=== PATIENT | female | born 1980 | race Caucasian/White ===

== ENCOUNTER → 2017-07-08 | Outpatient (CLI) | payer OTHER ==
[~2017-07-08] MED LIST: CLR10 PO
== END | disposition home or self-care (01) ==
LOC: C.PAPS 14:11
PROVIDERS: ATTEND Obstetrics & Gynecology
DX: Z12.4 Encounter for screening for malignant neoplasm of cervix (principal)

== ENCOUNTER → 2017-11-15 | Outpatient (CLI) | payer OTHER ==
[~2017-11-15] MED LIST changes: +OXYC-57 PO
== END | disposition home or self-care (01) ==
LOC: C.LABSPEC 16:08
PROVIDERS: ATTEND Obstetrics & Gynecology
DX: O09.521 Supervision of elderly multigravida, first trimester (principal); Z3A.00 Weeks of gestation of pregnancy not specified

== ENCOUNTER 2017-11-16 08:03 | Observation (INO) | payer BC, OTHER ==
[2017-11-16] VITALS (7 sets, daily range): BP systolic 116–143; BP diastolic 70–81; PULSE 59–87; TEMP 36.7–37; O2SAT 95–98; Ht 157.5 cm; Wt 55.4 kg
[~2017-11-16] VITALS: Ht 157.5 cm; Wt 55.4 kg
[~2017-11-16 08:03] MED LIST changes: -OXYC-57 PO
--- NOTE | 2017-11-16 08:38 | EMERGENCY ROOM VISIT NOTE ---
History First contact with patient: 08:19 Chief Complaint: ABDOMINAL PAIN Stated Complaint: LOWER R AD PAIN, 9W5D Nursing Triage Summary: pt report tuesday started having right abd pain. went to ob yesterday everything was fine with fetus today called ob told to come to ed to r/o appy. pain has moved to right lower quad. tender to touch. pt reports she has been nauseated for last 5 weeks and this is her 3rd . 9 weeks 3 days preg. History of Present Illness The patient is a 37 year old female who presents to the Emergency Room with complaints of right lower quadrant abdominal pain which began on Tuesday. The patient states the symptoms began Tuesday evening and overnight, worse as stated with nausea and vomiting. She states Tuesday, she did see Dr. Negron, her algorithm developer, did have evaluation of the fetus. She states she had a ultrasound completed at that time, and did not know any significant abnormalities noted. Last evening, she began experiencing worsening abdominal pain, and did awake with it this morning. She contacted her bilingual account manager's office, who did recommend she come to the emergency department for evaluation and to rule out acute appendicitis. States now that she is here, her pain has improved, however she continues to feel tenderness in the right lower quadrant, overlying McBurney's point. The pain is worse with lying down, and improves with sitting up. She describes the pain as a soreness in the right lower quadrant, but states she has had associated diffuse cramping and spasms. She has had a poor appetite, but denies fever or recent illness. She denies any chest pain, dyspnea, headache, dizziness, diarrhea, constipation, urinary frequency, hesitancy, hematuria, or burning with urination. Review of Systems A complete 10 point review of systems was reviewed with the patient with pertinent positives and negatives as per history of present illness. All else were negative. Past Medical/Surgical History Surgical Problems: (1) No pertinent past surgical history Family History Patient reports no known family medical history. Social History Smoking Status: Never Smoker Marital Status: Housing Status: lives with family Occupation Status: employed Current/Historical Medications Scheduled PRN Oxycodone/Acetaminophen 5MG/325MG (Percocet 5MG/325MG), 1-2 TABLETS PO q 6 hrs PRN for Pain Physical Exam Vital Signs Date Time Temp Pulse Resp B/P (MAP) Pulse Ox O2 Delivery O2 Flow Rate FiO2 11/16/17 12:50 64 12 127/94 100 Nasal Cannula 2 11/16/17 12:40 66 12 133/87 100 Oxymask 10 11/16/17 12:32 36.6 85 12 132/83 100 Oxymask 10 11/16/17 10:27 86 20 146/96 98 Room Air 11/16/17 08:13 37.0 95 18 135/90 97 Room Air Physical Exam VITALS: Vitals are noted on the nurse's note and reviewed by myself. Vital signs stable. GENERAL: This is a 37-year-old white female, in no acute distress, nondiaphoretic, well-developed well-nourished. SKIN: The skin was without rashes, erythema, edema, or bruising. There is no tenting of the skin. Capillary reflex less than 2 seconds. HEAD: Normocephalic atraumatic. EARS: External auditory canals clear, tympanic membranes pearly macais without erythema or effusion bilaterally. EYES: Pupils equal round and reactive to light and accommodation. Conjunctivae without injection, sclerae without icterus. Extraocular movements intact. NOSE: Patent, turbinates without inflammation or discharge. No sinus tenderness. MOUTH: Mucous membranes moist. Tonsils are not enlarged. Pharynx without erythema or exudate. Uvula midline. Airway patent. Tongue does not deviate. NECK: Supple without nuchal rigidity. No lymphadenopathy. No thyromegaly. Cervical spine is nontender. No JVD. HEART: Regular rate and rhythm without murmurs gallops or rubs. LUNGS: Clear to auscultation bilaterally without wheezes, rales or rhonchi. No dullness to percussion. No retractions or accessory muscle use. ABDOMEN: Positive bowel sounds x 4. Normal tympanic percussion. Tenderness over McBurney's point. No rebound tenderness noted. Positive Rovsing's. The abdomen was soft, without masses or organomegaly. Yarbrough sign negative. MUSCULOSKELETAL: No muscle atrophy, erythema, or edema noted. Full range of motion without joint tenderness in all extremities. No tenderness to palpation. Normal gait. Strength 5/5 throughout. NEURO: Patient was alert and oriented to person place and time. Normal sensation to light and sharp touch. Deep tendon reflexes 2+ throughout. No focal neurological deficits. Medical Decision & Procedures ER Provider Diagnostic Interpretation: CBC did show elevated white blood cell count of 14,000. No concerning anemia or thrombocytopenia. Urinalysis did show trace ketones, but no signs of infection. CMP did not reveal any significant renal, hepatic, or joint abnormalities. APPENDIX ULTRASOUND HISTORY: Pain RLQ tenderness at Mcburney's point, pt. is 9 wks COMPARISON: None. FINDINGS: The appendix is identified. Appears to contain an appendicolith. Has a maximum transaxial dimension of 11 mm. There is moderate edematous change of the appendiceal wall. IMPRESSION: 1. Acute appendicitis. 2. Appendix maximum diameter is 11 mm with a contained appendicolith. 3. Moderate edematous change of the appendix wall. 4. No evidence for abscess or collection by ultrasound criteria The above report was generated using voice recognition software. It may contain grammatical, syntax or spelling errors. Electronically signed by: Anuj Haywood M.D. 11/16/2017 9:46 AM Dictated Date/Time: 11/16/2017 9:43 AM Laboratory Results 11/16/17 09:00 Red Blood Count 4.11, Mean Corpuscular Volume 90.5, Mean Corpuscular Hemoglobin 31.1, Mean Corpuscular Hemoglobin Concent 34.4, Mean Platelet Volume 10.1, Neutrophils (%) (Auto) 82.5, Lymphocytes (%) (Auto) 9.4, Monocytes (%) (Auto) 7.6, Eosinophils (%) (Auto) 0.1, Basophils (%) (Auto) 0.1, Neutrophils # (Auto) 11.68, Lymphocytes # (Auto) 1.33, Monocytes # (Auto) 1.07, Eosinophils # (Auto) 0.01, Basophils # (Auto) 0.02 11/16/17 09:00 Test 11/16/17 09:00 White Blood Count 14.15 K/uL (4.8-10.8) Red Blood Count 4.11 M/uL (4.2-5.4) Hemoglobin 12.8 g/dL (12.0-16.0) Hematocrit 37.2 % (37-47) Mean Corpuscular Volume 90.5 fL (80-100) Mean Corpuscular Hemoglobin 31.1 pg (25-34) Mean Corpuscular Hemoglobin Concent 34.4 g/dl (32-36) Platelet Count 194 K/uL (130-400) Mean Platelet Volume 10.1 fL (7.4-10.4) Neutrophils (%) (Auto) 82.5 % Lymphocytes (%) (Auto) 9.4 % Monocytes (%) (Auto) 7.6 % Eosinophils (%) (Auto) 0.1 % Basophils (%) (Auto) 0.1 % Neutrophils # (Auto) 11.68 K/uL (1.4-6.5) Lymphocytes # (Auto) 1.33 K/uL (1.2-3.4) Monocytes # (Auto) 1.07 K/uL (0.11-0.59) Eosinophils # (Auto) 0.01 K/uL (0-0.5) Basophils # (Auto) 0.02 K/uL (0-0.2) RDW Standard Deviation 44.6 fL (36.4-46.3) RDW Coefficient of Variation 13.5 % (11.5-14.5) Immature Granulocyte % (Auto) 0.3 % Immature Granulocyte # (Auto) 0.04 K/uL (0.00-0.02) Urine Color YELLOW Urine Appearance CLEAR (CLEAR) Urine pH 8.0 (4.5-7.5) Urine Specific Felt 1.010 (1.000-1.030) Urine Protein NEG (NEG) Urine Glucose (UA) NEG (NEG) Urine Ketones TRACE (NEG) Urine Occult Blood NEG (NEG) Urine Nitrite NEG (NEG) Urine Bilirubin NEG (NEG) Urine Urobilinogen NEG (NEG) Urine Leukocyte Esterase NEG (NEG) Anion Gap 9.0 mmol/L (3-11) Est Creatinine Clear Calc Drug Dose 117.2 ml/min Estimated GFR () 141.5 Estimated GFR (Non- 122.1 BUN/Creatinine Ratio 12.8 (10-20) Calcium Level 9.6 mg/dl (8.5-10.1) Total Bilirubin 0.5 mg/dl (0.2-1) Aspartate Amino Transf (AST/SGOT) 10 U/L (15-37) Alanine Aminotransferase (ALT/SGPT) 15 U/L (12-78) Alkaline Phosphatase 52 U/L (45-117) Total Protein 7.1 gm/dl (6.4-8.2) Albumin 3.5 gm/dl (3.4-5.0) Globulin 3.6 gm/dl (2.5-4.0) Albumin/Globulin Ratio 1.0 (0.9-2) Medications Administered Medications (Trade) Dose Ordered Sig/Brendan Route Start Time Stop Time Status Last Admin Dose Admin Cefoxitin Sodium (Mefoxin IV) 2,000 mg NOW STAT IV 11/16/17 10:24 11/16/17 10:28 DC 11/16/17 11:29 2,000 MG Bupivacaine HCl (Marcaine 0.5% MPF Inj) 30 ml STK-MED ONCE .ROUTE 11/16/17 11:13 11/16/17 11:14 DC 11/16/17 12:38 7 ML Acetaminophen (Tylenol Tab) 650 mg Q4H PRN PO 11/16/17 12:30 12/16/17 12:29 11/16/17 15:14 650 MG Lactated Ringer's 1,000 ml @ 75 mls/hr [id number] IV 11/16/17 12:22 11/16/17 16:21 DC 11/16/17 14:39 75 MLS/HR Fentanyl Citrate (Fentanyl Inj) 100 mcg STK-MED ONCE .ROUTE 11/16/17 12:45 11/16/17 12:46 DC 11/16/17 12:54 50 MCG ED Course The patient was seen and evaluated as above. IV access was obtained and labs drawn. The patient was sent for appendix ultrasound, as she is currently 9 weeks . Ultrasound was positive for acute appendicitis. I consulted with Dr. Suarez at this time who was in agreement with the plan to contact the surgeon/OB-CORRECTIONAL PROBATION OFFICER. I consulted with Dr. Espino, who agrees to see and evaluate the patient. I contacted Dr. Negron, the patient's bilingual account manager, who is familiar with the case and is in agreement with the plan of care. The patient was evaluated by Dr. Espino. Please refer to his dictation. She was given 2grams of Cefoxitin IV. I did consult with the pharmacist regarding this medication in a patient and they are in agreement that this is the most appropriate medication. The patient was taken to the OR. Medical Decision This is a 37-year-old female patient who presents to the emergency department complaining of worsening right lower quadrant abdominal pain. The pain began more generalized, and seemed to settle into McBurney's point last evening. The pain has been associated with nausea, vomiting, and a poor appetite. The patient has not had fever. She was seen by her bilingual account manager yesterday, who did perform a ultrasound, ensuring the did not seem to be the cause of her symptoms. Last night, the pain began worsening, and she was recommended to come to the emergency department by her obstetricians office. The patient presents here, and an due to her , and small body habitus, ultrasound was performed to avoid radiation exposure, which was positive for acute appendicitis. The patient was seen and evaluated by the surgeon, who did admit the patient for appendectomy. The patient's bilingual account manager was in agreement with this plan. Etiologies such as appendicitis, diverticulitis, obstruction, inflammatory bowel disease, renal colic, PUD, biliary pathology, pancreatitis, mesenteric ischemia, aortic pathology, infections, genitourinary, UTI, perforated viscus, as well as others were entertained. Medication Reconcilliation Current Medication List: was personally reviewed by me Blood Pressure Screening Patient's blood pressure: Normal blood pressure Impression Primary Impression: Appendicitis Departure Information Dispostion Being Evaluated By Surgeon Condition GOOD Prescriptions Oxycodone/Acetaminophen 5MG/325MG (PERCOCET 5MG/325MG) Tab 1-2 TABLETS PO q 6 hrs Y for Pain, #30 TAB PAIN Prov: Bran Espino M.D. 11/16/17 Referrals Angelica Moon M.D. (PCP) Patient Instructions [facility] Problem Qualifiers Primary Impression: Appendicitis Appendicitis type: acute appendicitis Acute appendicitis type: with localized peritonitis Qualified Codes: K35.3 - Acute appendicitis with localized peritonitis
[2017-11-16 09:15] LABS: BASO % 0.1 %; BASO ABS # 0.02 K/uL (0-0.2); EOS % 0.1 %; EOS ABS # 0.01 K/uL (0-0.5); HEMATOCRIT 37.2 % (37-47); HEMOGLOBIN 12.8 g/dL (12.0-16.0); IG# 0.04 K/uL (0.00-0.02); LYMPH % 9.4 %; LYMPH ABS # 1.33 K/uL (1.2-3.4); MEAN CELL VOLUME 90.5 fL (80-100); MEAN CORPUSCULAR HEMOGLOBIN 31.1 pg (25-34); MEAN CORPUSCULAR HGB CONC 34.4 g/dl (32-36); MEAN PLATELET VOLUME 10.1 fL (7.4-10.4); MONO % 7.6 %; MONO ABS # 1.07 K/uL (0.11-0.59); NEUT % 82.5 %; NEUT ABS # 11.68 K/uL (1.4-6.5); PLATELET COUNT 194 K/uL (130-400); RED CELL DISTRIBUTION WIDTH CV 13.5 % (11.5-14.5); RED CELL DISTRIBUTION WIDTH SD 44.6 fL (36.4-46.3); WHITE BLOOD COUNT 14.15 K/uL (4.8-10.8)
[2017-11-16 09:42] LABS: ALBUMIN 3.5 gm/dl (3.4-5.0); CALCIUM 9.6 mg/dl (8.5-10.1); CREATININE 0.52 mg/dl (0.60-1.20); POTASSIUM 3.6 mmol/L (3.5-5.1)
[2017-11-16 09:45] LABS: TOTAL PROTEIN 7.1 gm/dl (6.4-8.2)
--- NOTE | 2017-11-16 09:47 | DIAGNOSTIC IMAGING REPORT ---
APPENDIX ULTRASOUND HISTORY: Pain RLQ tenderness at Mcburney's point, pt. is 9 wks COMPARISON: None. FINDINGS: The appendix is identified. Appears to contain an appendicolith. Has a maximum transaxial dimension of 11 mm. There is moderate edematous change of the appendiceal wall. IMPRESSION: 1. Acute appendicitis. 2. Appendix maximum diameter is 11 mm with a contained appendicolith. 3. Moderate edematous change of the appendix wall. 4. No evidence for abscess or collection by ultrasound criteria The above report was generated using voice recognition software. It may contain grammatical, syntax or spelling errors. Electronically signed by: Anuj Haywood M.D. 11/16/2017 9:46 AM Dictated Date/Time: 11/16/2017 9:43 AM
[2017-11-16] MEDS ORDERED: CEFOXITIN SOD 2 GM VIAL IV STA (10:24)
--- NOTE | 2017-11-16 10:38 | History and Physical ---
History & Physical Date Nov 16, 2017. Chief Complaint abd pain History of Present Illness The patient is a 37 year old female with complaints of RLQ abd [id number] hrs u/s shows appendicitis w/ appendolith pt is 9 weeks Past Medical/Surgical History Surgical Problems: (1) No pertinent past surgical history Additional History Hepatic Disease: No Kidney Disease: No Heart Disease: No Allergies Coded Allergies: No Known Allergies (Verified , 11/16/17) Home Medications No Active Prescriptions or Reported Meds Physical Examination Eyes: sclerae normal Head: atraumatic Neck: supple Respiratory/Chest: no respiratory distress Cardiovascular: no edema Abdomen / GI: + pertinent finding (very tender RLQ to palpation) Diagnosis acute appendicitis Plan of Treatment for laparoscopic appendectomy, possible open operation
[2017-11-16] MEDS ORDERED: NEOSTIGMINE METHYLSULFATE 5 MG/5 ML SYR ONE (11:04)
[2017-11-16] MEDS ORDERED: GLYCOPYRROLATE INJ 0.2 MG/ML VIAL ONE ×2 (11:04→12:14)
[2017-11-16] MEDS ORDERED: PROPOFOL IV EMULSION 10 MG/ML 20 ML VIAL IV ONE (11:04)
[2017-11-16] MEDS ORDERED: ONDANSETRON INJ 2 MG/ML 2 ML VIAL ONE (11:04)
[2017-11-16] MEDS ORDERED: DEXAMETHASONE SOD INJ 4 MG/ML VIAL ONE (11:04)
[2017-11-16] MEDS ORDERED: LIDOCAINE HCL 2% 2 ML VIAL (20MG/ML) ONE (11:04)
[2017-11-16] MEDS ORDERED: FENTANYL CITRATE INJ 50 MCG/1 ML 2 ML VIAL ONE ×3 (11:04→12:45)
[2017-11-16] MEDS ORDERED: BUPIVACAINE 0.5 % 5 MG/1 ML MPF 30ML VIAL ONE (11:13)
[2017-11-16] MEDS ORDERED: ONDANSETRON INJ 2 MG/ML 2 ML VIAL IV PRN ×2 (12:00→12:30)
[2017-11-16] MEDS ORDERED: FENTANYL CITRATE INJ 50 MCG/1 ML 2 ML VIAL IV PRN (12:00)
[2017-11-16] MEDS ORDERED: EpHEDrine SULFATE INJ 50 MG/ML AMP IV PRN (12:00)
[2017-11-16] MEDS ORDERED: HYDROmorphone INJ 1 MG/ML SYR IV PRN (12:00)
[2017-11-16] MEDS ORDERED: ATROPINE SULFATE 0.1 MG/ML 5ML SYR IV PRN (12:00)
[2017-11-16] MEDS ORDERED: PROMETHAZINE HCL INJ 6.25 MG in SODIUM CHLORIDE 0.9% 50ML 50 ML IV PRN (12:00)
[2017-11-16] MEDS ORDERED: ROCURONIUM BROMIDE 10 MG/ML 5 ML VIAL IV ONE (12:04)
[2017-11-16] MEDS ORDERED: SUCCINYLCHOLINE 100MG/5ML SYR IV ONE (12:04)
--- NOTE | 2017-11-16 12:19 | [facility] Operative Report ---
Operative Report Operative Date Nov 16, 2017. Pre-Operative Diagnosis acute appendicitis Post-Operative Diagnosis same Procedure(s) Performed laparoscopic appendectomy Surgeon Espino Fire Alarm Mechanic Surgeon(s) Josie Medina Estimated Blood Loss 5cc Findings nonperforated appendix- appendolith at base Specimens appendix Anesthesia gen Complication(s) None Disposition Recovery Room / PACU I attest to the content of the Intraoperative Record and any orders documented therein. Any exceptions are noted below.
[2017-11-16] MEDS ORDERED: LACTATED RINGER'S 1000ML 1,000 ML IV SCH (12:22)
[2017-11-16] MEDS ORDERED: MoRPHine SULFATE 4 MG/ML 1 ML CARP\\VIAL IV PRN (12:30)
[2017-11-16] MEDS ORDERED: OXYCODONE/ACETAMINOPHEN 5-325 TAB PO PRN ×2 (12:30)
[2017-11-16] MEDS ORDERED: MoRPHine SULFATE 2 MG/ML CARP IV PRN (12:30)
--- NOTE | 2017-11-16 12:47 | OPERATIVE REPORT ---
DATE OF OPERATION: 11/16/2017 PREOPERATIVE DIAGNOSIS: Acute appendicitis. POSTOPERATIVE DIAGNOSIS: Same. NAME OF OPERATION: Laparoscopic appendectomy. STAFF SURGEON: Dr. Espino. TRIAGE ASSISTANT: Cirilo Medina PA-C. ANESTHESIA: General. PROCEDURE: The patient was brought in the operating room and placed on the operating table in supine position. Her abdomen was prepped and draped in the usual fashion. Crenshaw catheter was placed. Orogastric tube was placed. Using 0.5% plain Marcaine, all incisions were anesthetized. Incision was made above the umbilicus, carrying dissection down, placing a Veress needle producing pneumoperitoneum and placing an 11 mm port. Under visualization, a 5 mm port was placed suprapubically and then a 12 mm port placed in the left lower quadrant. The appendix was easily identified. It was inflamed. There was no abscess or significant exudate. There was an appendicolith at the base. The base of the appendix was dissected and an Endo-DENISE stapler passed over the base transecting it. The mesoappendix was then transected using a second load of the Endo-DENISE. At this point, the appendix was placed in an Endobag and removed through the left lower quadrant site. The site was then irrigated, hemostasis was excellent. All ports were removed. The 12 mm and 11 mm sites closed using 0 Vicryl for the fascia and then the skin reapproximated using subcuticular 4-0 Monocryl, Steri-Strips in the left lower quadrant and Dermabond for the other sites. As a note, my assistant women's basketball coach helped with prepping, draping, entering the abdomen, exposing the appendix, removing the appendix and closing the abdominal wounds. I attest to the content of the Intraoperative Record and any orders documented therein. Any exception s are noted below.
[2017-11-16] MEDS ORDERED: IV FLUIDS COMPLETED PRN (14:00)
--- NOTE | 2017-11-16 14:12 | Anesthesiology Progress Note ---
Anesthesia Post Op Note Date & Time Nov 16, 2017 at 14:11 Vital Signs Pain Intensity: 1.0 Vital Signs Past 12 Hours Date Time Temp Pulse Resp B/P (MAP) Pulse Ox O2 Delivery O2 Flow Rate FiO2 11/16/17 13:15 97 Room Air 11/16/17 13:15 36.7 59 12 122/79 97 Room Air 11/16/17 13:00 71 12 136/80 99 Nasal Cannula 2 11/16/17 12:50 64 12 127/94 100 Nasal Cannula 2 11/16/17 12:40 66 12 133/87 100 Oxymask 10 11/16/17 12:32 36.6 85 12 132/83 100 Oxymask 10 11/16/17 10:27 86 20 146/96 98 Room Air 11/16/17 08:13 37.0 95 18 135/90 97 Room Air Notes Mental Status: alert / awake / arousable, participated in evaluation Pt Amnestic to Procedure: Yes Nausea / Vomiting: adequately controlled Pain: adequately controlled Airway Patency, RR, SpO2: stable & adequate BP & HR: stable & adequate Hydration State: stable & adequate Anesthetic Complications: no major complications apparent
[2017-11-16] MEDS: ACETAMINOPHEN 325 MG TAB PO PRN ×3 (15:14→23:04)
[2017-11-16] MEDS: CEFOXITIN IV 1,000 MG in DEXTROSE 5% 50ML 50 ML IV SCH ×2 (16:04→21:55)
--- NOTE | 2017-11-16 16:07 | Discharge Instructions ---
Discharge Instructions Date of Service Nov 16, 2017. Admission Reason for Admission: Lower R Ad Pain, 9W5D Discharge Discharge Diagnosis / Problem: acute appendicitis Discharge Goals Goal(s): Decrease discomfort, Improve function, Improve disease control Activity Recommendations Activity Limitations: as noted below Lifting Limitations: no more than 10 pounds (for 3 weeks) Exercise/Sports Limitations: until after follow-up appointment May Resume Sexual Activity: when tolerated Shower/Bathe: tomorrow Driving or Machine Use: resume 3 days after discharge . Instructions / Follow-Up Instructions / Follow-Up SPECIAL CARE INSTRUCTIONS: * Cover incisions and change daily for comfort/drainage. May leave uncovered with dermabond * Leave steri strips in place * May use Acetaminophen as needed * Expect some swelling and bruising. Call your doctor if: * Temperature above 101 degrees * Pain not relieved by pain medicine ordered * There is increased drainage or redness from any incision * You have any unanswered questions or concerns [phone]. FOLLOW UP VISIT: If not already scheduled, please call the office for a follow-up visit. for 2 weeks- check up- no sutures to remove OFFICE PHONE NUMBER: Dr. Espino Office Current Hospital Diet Patient's current hospital diet: Regular Diet Discharge Diet Recommended Diet: Regular Diet Procedures Procedures Performed: Laparoscopic appendectomy Pending Studies Studies pending at discharge: no Work Instructions Return To Work: 1 week (may need 1-2 weeks off work- call office for notes as needed) Medical Emergencies . Who to Call and When: Medical Emergencies: If at any time you feel your situation is an emergency, please call 911 immediately. . Non-Emergent Contact Non-Emergency issues call your: Primary Care Provider, Surgeon . "Provider Documentation" section prepared by Bran Espino. . VTE Core Measure Inpt VTE Proph given/why not?: SCD's
[2017-11-16] MEDS ORDERED: OXYC-57 PO (16:08)
[2017-11-16] MEDS ORDERED: NURSING VERBAL MED ORDER ONE (16:15)
--- NOTE | 2017-11-16 17:15 | Progress Note ---
Progress Note Date of Service Nov 16, 2017. Progress Note courtesy visit. pt seen postop. reassured about risks of surgery and anesth to as low. fhts visualized with bedside us for pt reassurance. offered followup fhts in office tuesday if upon discharge wants reassurance before weekend. she will let me know if she wants.
[2017-11-17 03:20] VITALS: BP 132/83; PULSE 82; TEMP 36.9
[2017-11-17] MEDS: ACETAMINOPHEN 325 MG TAB PO PRN ×2 (03:31→07:26)
[2017-11-17 07:20] VITALS: O2SAT 98
[2017-11-17 07:56] VITALS: BP 128/78; PULSE 87; TEMP 37; O2SAT 98
[2017-11-17 08:25] VITALS: BP 128/78; PULSE 87; TEMP 37; O2SAT 98
--- NOTE | 2017-11-21 10:39 | DISCHARGE SUMMARY ---
PRIMARY DISCHARGE DIAGNOSES: 1. Acute appendicitis. 2. , approximately 9 weeks gestation. PROCEDURE PERFORMED: Laparoscopic appendectomy. HOSPITAL COURSE: The patient is a 37-year-old female with 2 days of abdominal pain, referred to the ER by her door liner helper after pain localized to right lower quadrant. Her white count was 14,000. She had a dilated appendix with an appendicolith noted on ultrasound. She was taken to the operating room for laparoscopic appendectomy. The procedure was well tolerated. She was transferred to the women's and children's unit for overnight observation. On postoperative day 1, she was tolerating diet and oral analgesics. Her abdomen was benign, she was stable for discharge. DISCHARGE INSTRUCTIONS: Discharge home. Follow up with Dr. Espino in 2 weeks. DISCHARGE MEDICATIONS: Percocet 1-2 tablets every 6 hours as needed. MTDD
== END 2017-11-17 08:25 | disposition home or self-care (01) ==
LOC: C.EDB 08:04 → C.MS4N 12:56 → ENRESERV 13:07
PROVIDERS: ADMIT Surgery; ATTEND Surgery
DX: K35.3 Acute appendicitis with localized peritonitis (principal); Z33.1 Pregnant state, incidental

== ENCOUNTER → 2017-11-21 | Outpatient (CLI) | payer BC ==
[~2017-11-21] MED LIST changes: -CLR10 PO; +OXYC-57 PO
[2017-11-21 09:45] LABS: BASO % 0.4 %; BASO ABS # 0.03 K/uL (0-0.2); EOS % 1.2 %; EOS ABS # 0.09 K/uL (0-0.5); HEMATOCRIT 38.7 % (37-47); HEMOGLOBIN 12.8 g/dL (12.0-16.0); IG# 0.04 K/uL (0.00-0.02); LYMPH % 19.4 %; LYMPH ABS # 1.49 K/uL (1.2-3.4); MEAN CELL VOLUME 90.4 fL (80-100); MEAN CORPUSCULAR HEMOGLOBIN 29.9 pg (25-34); MEAN CORPUSCULAR HGB CONC 33.1 g/dl (32-36); MEAN PLATELET VOLUME 10.3 fL (7.4-10.4); MONO % 7.8 %; NEUT % 70.7 %; NEUT ABS # 5.45 K/uL (1.4-6.5); PLATELET COUNT 232 K/uL (130-400); RED CELL DISTRIBUTION WIDTH CV 13.3 % (11.5-14.5); RED CELL DISTRIBUTION WIDTH SD 43.6 fL (36.4-46.3)
== END | disposition home or self-care (01) ==
LOC: C.LAB1850 07:58
PROVIDERS: ATTEND Obstetrics & Gynecology
DX: O09.521 Supervision of elderly multigravida, first trimester (principal); Z3A.00 Weeks of gestation of pregnancy not specified

== ENCOUNTER → 2018-01-03 | Outpatient (CLI) | payer BC | END | disposition home or self-care (01) | LOC: C.LAB1850 16:13 | PROVIDERS: ATTEND Obstetrics & Gynecology | DX: O09.522 Supervision of elderly multigravida, second trimester (principal) ==

== ENCOUNTER → 2018-05-25 | Outpatient (CLI) | payer BC | END | disposition home or self-care (01) | LOC: C.LABSPEC 11:27 | PROVIDERS: ATTEND Obstetrics & Gynecology | DX: O09.523 Supervision of elderly multigravida, third trimester (principal) ==

== ENCOUNTER 2018-06-08 13:57 | Inpatient (IN) | payer BC ==
[~2018-06-08] VITALS: Ht 157.5 cm; Wt 71.4 kg
[2018-06-08] MEDS ORDERED: LACTATED RINGER'S 1000ML 1,000 ML IV SCH (14:11)
[2018-06-08] MEDS ORDERED: LACTATED RINGER'S 1000ML 1,000 ML IV PRN (14:11)
[2018-06-08 14:37] LABS: HEMATOCRIT 33.8 % (37-47); MEAN CELL VOLUME 95.5 fL (80-100); MEAN CORPUSCULAR HEMOGLOBIN 31.1 pg (25-34); MEAN CORPUSCULAR HGB CONC 32.5 g/dl (32-36); MEAN PLATELET VOLUME 9.9 fL (7.4-10.4); PLATELET COUNT 161 K/uL (130-400); RED CELL DISTRIBUTION WIDTH SD 55.6 fL (36.4-46.3); WHITE BLOOD COUNT 10.42 K/uL (4.8-10.8)
[2018-06-08] MEDS ORDERED: EpHEDrine SULFATE INJ 50 MG/ML AMP ONE (15:04)
[2018-06-08] MEDS ORDERED: FENTANYL CITRATE INJ 50 MCG/1 ML 2 ML VIAL ONE (15:04)
[2018-06-08] MEDS ORDERED: BUPIVACAINE 0.25% 30 ML VIAL ONE (15:04)
[2018-06-08] MEDS ORDERED: FENTANYL 2MCG/ML ROPIV 1.25MG/ML 100ML BAG ONE (15:05)
[2018-06-08 15:14] VITALS: Ht 157.5 cm; Wt 71.4 kg
[2018-06-08] MEDS ORDERED: DOCU-94 PO (15:16)
[2018-06-08] MEDS ORDERED: PRENTAB26 PO (15:16)
[2018-06-08] MEDS ORDERED: FERR142T (15:16)
[2018-06-08] MEDS ORDERED: LACTATED RINGER'S 1000ML 500 ML IV PRN ×2 (15:18→16:21)
[2018-06-08] MEDS ORDERED: OXYTOCIN 30 UNITS/500ML NSS IV PRN ×2 (15:30→19:45)
[2018-06-08] MEDS ORDERED: NALOXONE HCL INJ 1 MG in SODIUM CHLORIDE 0.9% 1000ML 1,000 ML IV PRN (16:21)
[2018-06-08] MEDS ORDERED: NALOXONE HCL INJ 0.4 MG/1 ML VIAL/CARP IV PRN (16:30)
[2018-06-08] MEDS ORDERED: EpHEDrine SULFATE INJ 50 MG/ML AMP IV PRN (16:30)
[2018-06-08] MEDS ORDERED: DiphenhydrAMINE HCL 50 MG/ML VIAL IV PRN (16:30)
[2018-06-08] MEDS ORDERED: NALBUPHINE HCL INJ 10 MG/ML 1ML AMP IV PRN (16:30)
[2018-06-08] MEDS ORDERED: FENTANYL 2MCG/ML ROPIV 1.25MG/ML 100ML BAG EPI PRN (16:30)
[2018-06-08] MEDS ORDERED: ONDANSETRON INJ 2 MG/ML 2 ML VIAL IV PRN (16:30)
[2018-06-08] MEDS ORDERED: OXYCODONE/ACETAMINOPHEN 5-325 TAB PO PRN (19:45)
[2018-06-08] MEDS ORDERED: SUPERCREAM 0.870 % 15GM JAR EXT PRN (19:45)
[2018-06-08] MEDS ORDERED: BENZOCAINE 20% AER SPR 82.5 GM CAN EXT PRN (19:45)
[2018-06-08] MEDS ORDERED: LANOLIN OINT EXT PRN (19:45)
[2018-06-08] MEDS ORDERED: ACETAMINOPHEN 325 MG TAB PO PRN (19:45)
[2018-06-08] MEDS ORDERED: DIPHTHERIA/TETANUS/PERTUSSIS 0.5 ML SYR/VIAL IM. ONE (19:45)
[2018-06-08] MEDS ORDERED: HYDROCORTISONE ACETATE 25 MG SUPP PR PRN (19:45)
[2018-06-08] MEDS: DOCUSATE SODIUM 100 MG CAP PO SCH (21:23)
[2018-06-08] MEDS: IBUPROFEN 600 MG TAB PO PRN (21:34)
[2018-06-09 00:05] VITALS: BP 110/65; PULSE 98; TEMP 37
[2018-06-09 03:20] VITALS: BP 115/71; PULSE 81; TEMP 36.8
[2018-06-09] MEDS: IBUPROFEN 600 MG TAB PO PRN ×4 (03:20→15:56)
--- NOTE | 2018-06-09 06:32 | Progress Note ---
Subjective Jun 09, 2018. Subjective conversation w/ patient, physical exam Ambulation: ambulating normally Voiding: no voiding problems Passing Gas: Yes Diet Tolerance: Regular Diet Lochia: Moderate Feeding Type: Breast Feeding Pain: improving Comment: Constitutional: No fever, No chills, No sweats Respiratory: No cough, No sputum, No wheezing Cardiac: No chest pain, No palpitations Abdomen: No pain, No nausea, No vomiting, No diarrhea Female : No dysuria Review of Systems Constitutional: No fever, No chills, No sweats Respiratory: No cough, No sputum, No wheezing Cardiac: No chest pain, No palpitations Abdomen: No pain, No nausea, No vomiting, No diarrhea Female : No dysuria Objective Vital Signs Date Time Temp Pulse Resp B/P (MAP) Pulse Ox O2 Delivery O2 Flow Rate FiO2 06/09/18 03:20 36.8 81 18 115/71 (86) Room Air 06/09/18 00:05 37.0 98 18 110/65 (80) Room Air 06/09/18 00:05 Room Air Physical Exam General Appearance: WELL-APPEARING, NO APPARENT DISTRESS Respiratory/Chest: chest non-tender Cardiovascular: regular rate, rhythm Abdomen: normal bowel sounds Fundus: Firm, Relation to Umbilicus (-1cm) Extremities: non-tender, no calf tenderness Laboratory Results Last 24 Hours Test 06/08/18 14:28 06/09/18 04:44 White Blood Count 10.42 K/uL Red Blood Count 3.54 M/uL Hemoglobin 11.0 g/dL Hematocrit 33.8 % Mean Corpuscular Volume 95.5 fL Mean Corpuscular Hemoglobin 31.1 pg Mean Corpuscular Hemoglobin Concent 32.5 g/dl RDW Standard Deviation 55.6 fL RDW Coefficient of Variation 16.0 % Platelet Count 161 K/uL Mean Platelet Volume 9.9 fL Medications Current Inpatient Medications Medications (Trade) Dose Ordered Sig/Brendan Route Start Time Stop Time Status Last Admin Dose Admin Oxytocin (Pitocin IV) 30 units UD PRN IV 06/08/18 19:45 07/08/18 19:44 Benzocaine (Dermoplast Aero Spr) 1 appln PRN PRN EXT 06/08/18 19:45 07/08/18 19:44 Cocaine HCl (Supercream 0.870% Cr) BID PRN EXT 06/08/18 19:45 06/22/18 19:44 06/09/18 03:20 1 GM Hydrocortisone Acetate (Anusol Hc Supp) 25 mg BID PRN ME 06/08/18 19:45 07/08/18 19:44 Lanolin (Lanolin Oint) PRN PRN EXT 06/08/18 19:45 07/08/18 19:44 Prenat Multivit/ Beckham/Iron/Folic Ac ( Vitamin Tab) 1 tab DAILY PO 06/09/18 08:00 07/09/18 07:59 Ibuprofen (Motrin Tab) 600 mg Q4H PRN PO 06/08/18 19:45 07/08/18 19:44 06/09/18 03:20 600 MG Acetaminophen (Tylenol Tab) 650 mg Q6H PRN PO 06/08/18 19:45 07/08/18 19:44 06/09/18 05:16 650 MG Oxycodone/ Acetaminophen (Percocet 5-325mg Tab) 1 tab Q4H PRN PO 06/08/18 19:45 06/22/18 19:44 Docusate Sodium (coLACE CAP) 100 mg BID PO 06/08/18 20:00 07/08/18 19:59 Assessment and Plan Problem List Medical Problems: (1) Appendicitis Status: Acute Day#: 1 Continue Routine Care: 38 yo PPD1 s/p -AFVSS, Pt doing well resting comfortably -F/U CBC HGB 11.0 on admission no si/sx of anemia -Plan is to breast feed -Tolerating regular diet, no n/v -Continue to encourage ambulation -Routine care Resident Physician Supervision Note: I interviewed and examined the patient. Discussed with Dr. Rojas and agree with findings and plan as documented in the note. Any exceptions or clarifications are listed here: Doing well. Routine care. Documented By: Florina Bowman Resident Tracking Resident Involvement: Resident Care Provided Care Provided: Adult Hospital Medicine
--- NOTE | 2018-06-09 06:49 | Discharge Instructions ---
Discharge Instructions Date of Service Jun 09, 2018. Admission Reason for Admission: Check Labor Discharge Discharge Diagnosis / Problem: Discharge Goals Goal(s): Routine recovery after delivery Medications Continue Dispensed Medications: supercream, dermaplast Activity Recommendations Activity Limitations: per Instructions/Follow-up section . Instructions / Follow-Up Instructions / Follow-Up ACTIVITY RECOMMENDATIONS: * Gradual return to full activity over the next 2-3 weeks. * No lifting - nothing heavier than baby over the next 2-3 weeks. * Do not engage in vigorous exercise, sexual activity or sports until cleared by your physician. * Do not drive or operate any motorized equipment until cleared by your physician. * You may shower/bathe daily. MEDICATIONS: For discomfort or pain, you may use Acetaminophen (Tylenol), Ibuprofen (Advil), or Naproxen (Aleve) following the package directions. For constipation you may use Colace following the package directions. BREAST CARE: If you are not breast feeding: * Wear a supportive bra 24 hours a day for one to two weeks. * Avoid stimulating your breasts and nipples as much as possible during the first few weeks after delivery. * When taking a shower, have the warm water hit your back, not breasts. * When your breasts feel full, apply ice packs. Usually three to four times a day helps ease the discomfort. * Take a mild pain medication (Tylenol / Motrin) when you are uncomfortable. If breast feeding: * Use breast milk to lubricate nipples. Lansinoh cream may be used for sore nipples. You do not need to remove cream prior to breast feeding. If using a different brand of cream, check the label for directions regarding removal of cream prior to nursing. * Wear a supportive bra. * If having problems with breasts or breast feeding, call a technology sales consultant or your health care provider. EPISIOTOMY CARE: After delivery, if you have an episiotomy (stitches), the following steps will ease discomfort and aid healing. * For the first 24 hours after delivery, place ice packs next to your episiotomy to help reduce swelling. * After the first 24 hour-period, sitz baths, either portable or in the tub, are suggested. A shower with a shower arm sprayed over the episiotomy may be comforting. * Eusebia care should be done after each voiding and bowel movement. Squirt warm water from a plastic bottle over the perineum (region of the body between the anus and urinary opening) and pat dry. * Use Dermoplast to ease discomfort. Shake container. [place] directly over the episiotomy. Place a Tucks on a clean sanitary pad next to your episiotomy. SPECIAL CARE INSTRUCTIONS: When you are discharged from the hospital, it is important for you to follow the instructions listed below: * During the first week at home, you should be able to care for yourself and your baby. In addition, the usual light household activities are encouraged. * Limit your activities to the way you feel. Do not try to clean the house or move furniture. Be sensible. * If you actively engage in sports and have done so up until the time of your delivery, you may resume these activities as soon as you feel able. This may take up to one month or even longer. Use good judgment. * Continue to take your vitamins for at least six weeks after the of your baby. * Your diet need not be limited unless you were on a special diet before your delivery. Breast-feeding mothers need around 2500 calories per day and at least 64-80 ounces of fluid per day (8 to 10 glasses). * You should eat foods from the four major food groups. Crash diets or fad diets are to be avoided. Eating lean meats, fresh fruits and vegetables, low-fat dairy products, high fiber foods and a regular exercise program, will help you get back to your pre- weight without putting your health at risk. * Constipation is sometimes a problem after delivery. Take a mild laxative as needed. If breast feeding, Milk of Magnesia is acceptable to use. You may use a suppository or Fleets enema if no episiotomy. * A daily shower or tub bath is suggested. Be sure to thoroughly and gently dry the perineum. * A bloody vaginal discharge will usually continue until around four weeks post . A small amount of bleeding may continue for as long as six weeks. Vaginal discharge changes from the bright red bleeding after delivery to pink then brownish and finally yellowish-pink before becoming white and disappearing. * Bleeding may increase with activity. Your first period may come in 4-8 weeks. If you are breast feeding, your period may be delayed even longer. * [place] (sex) can begin whenever both you and your partner feel comfortable and do not have any form of genital infection. It is recommended that you wait at least six weeks for internal and external healing to occur. If you have questions, please talk to your health care practitioner. A condom should be used to prevent infection and . * Foreplay, gentle intercourse and lubrication is very important the first several times to prevent pain. A water-based lubricant such as K-Y jelly or Astroglide may be used. * If you have RH negative blood and your baby is RH positive, you will receive RHOGAM by injection prior to discharge. The nurse will give you a card to keep with you that has the date and place that you received RHOGAM after delivery. * During your care, you had a Rubella screen done to check for the presence of rubella antibodies in your blood. If your test was negative, you will receive a Rubella vaccine prior to discharge. This vaccine may cause a fever, soreness at the injection site and flu-like symptoms. If these symptoms persist, notify your health care practitioner. is not advised for one month after a Rubella vaccine. * Verbalizes understanding of car seat law as reviewed with patient nursing. * Car Seat hand-out given and reviewed with patient by nursing. * Shaken baby information reviewed with patient by nursing. Call you doctor if: * Heavy bleeding (saturating several pads an hour) or passing clots the size of your fist. * A fever >101 degrees F (38.3 degrees C) on two occasions four hours apart and /or chills. * Unusual pain in the pelvic or vaginal areas. * "Baby Blues" lasting longer than two weeks. If you have any questions or concerns, call your health care practitioner at . FOLLOW UP VISIT: * Please call the office at to schedule a 6 week examination. It is important you keep this appointment. It is important for you to make arrangements for either yearly or twice yearly check-ups thereafter. Current Hospital Diet Patient's current hospital diet: Regular OB Diet Discharge Diet Recommended Diet: Regular OB Diet Pending Studies Studies pending at discharge: no Medical Emergencies . Who to Call and When: Medical Emergencies: If at any time you feel your situation is an emergency, please call 911 immediately. . Non-Emergent Contact Non-Emergency issues call your: Field Applications Specialist Call Non-Emergent contact if: temperature is above 100.5 . . "Provider Documentation" section prepared by Lux Rojas. . Resident Tracking Resident Involvement: Resident Care Provided Care Provided: Adult [facility] Medicine
[2018-06-09 06:53] LABS: HEMATOCRIT 31.6 % (37-47); HEMOGLOBIN 10.3 g/dL (12.0-16.0)
[2018-06-09 08:00] VITALS: BP 123/76; PULSE 77; TEMP 37; O2SAT 97
[2018-06-09] MEDS ORDERED: PRENATAL VITAMIN TAB PO SCH (08:00)
[2018-06-09] MEDS: DOCUSATE SODIUM 100 MG CAP PO SCH (08:00)
--- NOTE | 2018-06-09 08:04 | Anesthesia Procedure Note ---
Anesthesia Epidural Removal Nt Date & Time Jun 09, 2018 at 08:04 Vital Signs Pain Intensity: 1.0 Vital Signs Past 12 Hours Date Time Temp Pulse Resp B/P (MAP) Pulse Ox O2 Delivery O2 Flow Rate FiO2 06/09/18 03:20 36.8 81 18 115/71 (86) Room Air 06/09/18 00:05 37.0 98 18 110/65 (80) Room Air 06/09/18 00:05 Room Air Notes Mental Status: alert / awake / arousable, participated in evaluation Nausea / Vomiting: adequately controlled Pain: adequately controlled Airway Patency, RR, SpO2: stable & adequate BP & HR: stable & adequate Hydration State: stable & adequate Neuraxial Anesthesia: was administered Anesthetic Complications: no major complications apparent, pt satisfied with anesthetic care Epidural: removed without complications, with tip intact
[2018-06-09 12:00] VITALS: BP 117/78; PULSE 77; TEMP 36.7; O2SAT 97
[2018-06-09 16:00] VITALS: BP 113/74; PULSE 72; TEMP 36.6
[2018-06-09 20:40] VITALS: BP_DIAS 74; PULSE 72; TEMP 36.6
--- NOTE | 2018-06-20 10:12 | DELIVERY SUMMARY ---
DATE OF OPERATION: 06/08/2018 PREOPERATIVE DIAGNOSES: 1. Intrauterine at term. 2. Spontaneous rupture of membranes. 3. Early labor. 4. Advanced maternal age. DISCHARGE DIAGNOSES: 1. Intrauterine at term. 2. Spontaneous rupture of membranes. 3. Early labor. 4. Advanced maternal age. ANESTHESIA: Epidural. ESTIMATED BLOOD LOSS: 350 mL. PROCEDURE: The patient presented to labor and delivery with spontaneous rupture of membranes in early active labor. She progressed spontaneously to complete and complete and +1-2 station. She pushed over 2 contractions and delivered a viable female in [place] presentation and nose and mouth were bulb suctioned and nuchal cord was clamped and cut on the perineum. The rest of the infant was then delivered without difficulty. The infant was handed to nursing for drying and attention. Cord blood and segment were obtained. Placenta was delivered spontaneously and tacked with a 3-vessel cord. Cervix, sulci, rectum, and perineum were intact. Hemostasis was obtained with dilute Pitocin and fundal massage. Estimated blood loss was 350 mL. Apgars were 8 and 9. Mother and baby doing well at the end of the delivery. I attest to the content of the Intraoperative Record and any orders documented therein. Any exception s are noted below.
== END 2018-06-09 20:40 | disposition home or self-care (01) | DRG 775 ==
LOC: C.OPB 13:57 → C.LD 13:58 → C.OPB 14:13 → C.OBG 22:37
PROVIDERS: ADMIT Obstetrics & Gynecology; ATTEND Obstetrics & Gynecology
PROC: 10E0XZZ Delivery of Products of Conception, External Approach (ICD-10-PCS; principal; 2018-06-08)
DX: O09.513 Supervision of elderly primigravida, third trimester (principal); Z37.0 Single live birth